=== PATIENT | male | born 1985 | race African-American/Black ===

== ENCOUNTER 2017-08-05 10:21 | Emergency (ER) | payer SELFPAY ==
[~2017-08-05] VITALS: Ht 170.2 cm; Wt 84.3 kg
[2017-08-05] MEDS ORDERED: NAPROSYN500 MG PO (11:26)
[2017-08-05] MEDS ORDERED: FLEXERIL10 MG PO (11:26)
[2017-08-05 11:38] VITALS: BP 125/92
== END 2017-08-05 11:39 | disposition home or self-care (01) ==
LOC: EME 10:21
DX: S76.012A Strain of muscle, fascia and tendon of left hip, initial encounter (principal); S76.119A Strain of unspecified quadriceps muscle, fascia and tendon, initial encounter; M54.5 Low back pain; X50.9XXA Other and unspecified overexertion or strenuous movements or postures, initial encounter; Y93.89 Activity, other specified; Z72.0 Tobacco use
CPT/HCPCS: 99281; 99284; J1885